=== PATIENT | male | born 1960 | race Caucasian/White ===

== ENCOUNTER 2020-03-29 17:31 | Emergency (ER) | payer BC ==
--- NOTE | 2020-03-29 17:33 | ERPHSYRPT ---
- History of Present Illness Time Seen by Provider: 03/29/20 17:32 Historian: patient Exam Limitations: clinical condition Physician History: This is a 59-year-old white male who has a history of hypertension and presents with sudden onset of right flank pain that radiates down into his right lower quadrant and right groin. It occurred just prior to his arrival. Patient arrives writhing in pain. He feels nauseated but has not had any vomiting or diarrhea. Patient has never had anything like this in the past. Chest pain and he denies shortness of breath. Patient has no known drug allergies. The only medication he is taking is lisinopril Timing/Duration: today, sudden, worse Activities at Onset: none Quality: sharpness, stabbing Abdominal Pain Onset Location: flank (Right) Pain Radiation: RLQ, groin Severity of Pain-Max: moderate Severity of Pain-Current: moderate Modifying Factors: Improves With: nothing Associated Symptoms: denies symptoms Previous symptoms: no prior history Allergies/Adverse Reactions: No Known Drug Allergies Allergy (Verified 03/29/20 17:41) Home Medications: lisinopriL [Zestril] 2.5 mg PO DAILY 03/29/20 [History] Hx Tetanus, Diphtheria Vaccination/Date Given: (unsure) Hx Influenza Vaccination/Date Given: No Hx Pneumococcal Vaccination/Date Given: No Travel Risk - International Travel Have you traveled outside of the country in past 3 weeks: No Have you or anyone close to you been diagnosed with or: No Do your reside in a community with a known COVID-19 case?: Yes If Yes where:: [facility] - Coronavirus Screening Has patient experienced Coronavirus symptoms: No - Review of Systems Constitutional: No Symptoms Eyes: No Symptoms Ears, Nose, & Throat: No Symptoms Respiratory: No Symptoms Cardiac: No Symptoms Genitourinary Symptoms: Flank Pain (Right) Musculoskeletal: No Symptoms Skin: No Symptoms Neurological: No Symptoms Psychological: No Symptoms Endocrine: No Symptoms Hematologic/Lymphatic: No Symptoms Immunological/Allergic: No Symptoms All Other Systems: Reviewed and Negative - Past Medical History Pertinent Past Medical History: Yes Neurological History: No Pertinent History ENT History: No Pertinent History Cardiac History: No Pertinent History Respiratory History: Sleep Apnea Endocrine Medical History: No Pertinent History Musculoskeletal History: No Pertinent History GI Medical History: No Pertinent History History: No Pertinent History Psycho-Social History: No Pertinent History Male Reproductive Disorders: No Pertinent History - Past Surgical History Past Surgical History: Yes Neuro Surgical History: No Pertinent History Cardiac: No Pertinent History Respiratory: No Pertinent History Gastrointestinal: No Pertinent History Genitourinary: No Pertinent History Musculoskeletal: No Pertinent History Male Surgical History: Vasectomy Other Surgical History: t&a - Social History Smoking Status: Never smoker Exposure to second hand smoke: Yes Drug Use: none Patient Lives Alone: No - Nursing Vital Signs Nursing Vital Signs: Initial Vital Signs Temperature 98.1 F 03/29/20 17:36 Pulse Rate 68 03/29/20 17:36 Respiratory Rate 22 03/29/20 17:36 Blood Pressure 157/87 03/29/20 17:36 O2 Sat by Pulse Oximetry 99 03/29/20 17:36 Pain Scale Pain Intensity 10 - Physical Exam General Appearance: moderate distress, alert, anxiety Eye Exam: PERRL/EOMI, eyes nml inspection Ears, Nose, Throat Exam: normal ENT inspection, moist mucous membranes Neck Exam: normal inspection, non-tender, supple, full range of motion Respiratory Exam: normal breath sounds, lungs clear, airway intact, No chest tenderness, No respiratory distress Cardiovascular Exam: regular rate/rhythm, normal heart sounds, normal peripheral pulses Gastrointestinal/Abdomen Exam: soft, normal bowel sounds, No tenderness Rectal Exam: not done Back Exam: normal inspection, normal range of motion, CVA tenderness (Right), No vertebral tenderness Extremity Exam: normal inspection, normal range of motion, pelvis stable Neurologic Exam: alert, oriented x 3, cooperative, chamber magistrate II-XII nml as tested Skin Exam: normal color, warm, dry Lymphatic Exam: No adenopathy SpO2 Interpretation: normal O2 Delivery: Room Air - Course Nursing assessment & vital signs reviewed: Yes Ordered Tests: Active Orders 24 hr Category Date Time Status IV Insertion STAT Care 03/29/20 17:44 Active ABDOMEN AND PELVIS W/0 CONTRAS [CT] Stat Exams 03/29/20 17:45 Taken AMYLASE Stat Lab 03/29/20 17:50 Completed CBC W DIFF Stat Lab 03/29/20 17:50 Completed CMP Stat Lab 03/29/20 17:50 Completed Lactic Acid Stat Lab 03/29/20 17:50 Completed Lactic Acid Stat Lab 03/29/20 20:01 Received UA W/RFX UR CULTURE Stat Lab 03/29/20 20:00 Completed Medication Summary Discontinued Medications Generic Name Dose Route Start Last Admin Trade Name Cuco PRN Reason Stop Dose Admin Hydromorphone HCl 1 mg 03/29/20 17:44 03/29/20 17:58 Hydromorphone 1 Mg/Ml Ampule IV 03/29/20 17:45 1 mg STAT ONE Administration Hydromorphone HCl Confirm 03/29/20 17:52 Hydromorphone 1 Mg/Ml Ampule Administered 03/29/20 17:53 Dose 1 mg .ROUTE .STK-MED ONE Sodium Chloride 1,000 mls @ 999 mls/hr 03/29/20 17:44 03/29/20 17:55 Sodium Chloride 0.9% 1000 Ml IV 03/29/20 18:44 999 mls/hr .Q1H1M STA Administration Sodium Chloride Confirm 03/29/20 17:53 Sodium Chloride 0.9% 1000 Ml Administered 03/29/20 17:54 Dose 1,000 mls @ ud .ROUTE .STK-MED ONE Ketorolac Tromethamine 30 mg 03/29/20 17:44 03/29/20 17:57 Toradol 30 Mg Injection IV 03/29/20 17:45 30 mg STAT ONE Administration Ketorolac Tromethamine Confirm 03/29/20 17:52 Toradol 30 Mg Injection Administered 03/29/20 17:53 Dose 30 mg .ROUTE .STK-MED ONE Ondansetron HCl 4 mg 03/29/20 17:44 03/29/20 17:56 Zofran 4 Mg/2 Ml Vial IV 03/29/20 17:45 4 mg STAT ONE Administration Ondansetron HCl Confirm 03/29/20 17:52 Zofran 4 Mg/2 Ml Vial Administered 03/29/20 17:53 Dose 4 mg .ROUTE .STK-MED ONE Lab/Rad Data: Laboratory Result Diagrams 03/29/20 17:50 03/29/20 17:50 Laboratory Results 03/29/20 03/29/20 03/29/20 Range/Units 20:00 17:50 17:50 WBC (4.0-10.5) K/mm3 RBC (4.1-5.6) M/mm3 Hgb (12.5-18.0) gm/dl Hct (42-50) % MCV (78-100) fl MCH (26-32) pg MCHC (32-36) g/dl RDW (11.5-14.0) % Plt Count (150-450) K/mm3 MPV (7.5-11.0) fl Gran % (36.0-66.0) % Eos # (Auto) (0-0.5) Absolute Lymphs (auto) (1.0-4.6) Absolute Monos (auto) (0.0-1.3) Lymphocytes % (24.0-44.0) % Monocytes % (0.0-12.0) % Eosinophils % (0.00-5.0) % Basophils % (0.0-0.4) % Absolute Granulocytes (1.4-6.9) Basophils # (0-0.4) Sodium 140 (137-145) mmol/L Potassium 3.6 (3.5-5.1) mmol/L Chloride 103 (98-107) mmol/L Carbon Dioxide 27 (22-30) mmol/L Anion Gap 13.4 (5-15) MEQ/L BUN 20 (9-20) mg/dL Creatinine 1.09 (0.66-1.25) mg/dL Estimated GFR > 60.0 ML/MIN Glucose 137 H (74-106) mg/dL Lactic Acid 2.9 H (0.4-2.0) Calcium 8.9 (8.4-10.2) mg/dL Total Bilirubin 0.60 (0.2-1.3) mg/dL AST 25 (17-59) U/L ALT 17 (0-50) U/L Alkaline Phosphatase 48 (38-126) U/L Serum Total Protein 7.7 (6.3-8.2) g/dL Albumin 4.4 (3.5-5.0) g/dL Amylase 99 (30-110) U/L Urine Color STRAW (YELLOW) Urine Appearance CLEAR (CLEAR) Urine pH 7.0 (5-6) Ur Specific [place] 1.013 (1.005-1.025) Urine Protein NEGATIVE (Negative) Urine Ketones TRACE (NEGATIVE) Urine Blood NEGATIVE (0-5) Markel/ul Urine Nitrite NEGATIVE (NEGATIVE) Urine Bilirubin NEGATIVE (NEGATIVE) Urine Urobilinogen NEGATIVE (0-1) mg/dL Ur Leukocyte Esterase NEGATIVE (NEGATIVE) Urine WBC (Auto) NONE (0-5) /HPF Urine RBC (Auto) NONE (0-2) /HPF U Epithel Cells (Auto) NONE (FEW) /HPF Urine Bacteria (Auto) NONE (NEGATIVE) /HPF Urine Mucus (Auto) SLIGHT (NEGATIVE) /HPF Urine Culture Reflexed NO (NO) Urine Glucose NEGATIVE (NEGATIVE) mg/dL 03/29/20 Range/Units 17:50 WBC 13.6 H (4.0-10.5) K/mm3 RBC 4.61 (4.1-5.6) M/mm3 Hgb 14.1 (12.5-18.0) gm/dl Hct 42.4 (42-50) % MCV 92.0 (78-100) fl MCH 30.6 (26-32) pg MCHC 33.3 (32-36) g/dl RDW 13.2 (11.5-14.0) % Plt Count 225 (150-450) K/mm3 MPV 9.8 (7.5-11.0) fl Gran % 80.4 H (36.0-66.0) % Eos # (Auto) 0.10 (0-0.5) Absolute Lymphs (auto) 1.73 (1.0-4.6) Absolute Monos (auto) 0.80 (0.0-1.3) Lymphocytes % 12.7 L (24.0-44.0) % Monocytes % 5.9 (0.0-12.0) % Eosinophils % 0.7 (0.00-5.0) % Basophils % 0.3 (0.0-0.4) % Absolute Granulocytes 10.95 H (1.4-6.9) Basophils # 0.04 (0-0.4) Sodium (137-145) mmol/L Potassium (3.5-5.1) mmol/L Chloride (98-107) mmol/L Carbon Dioxide (22-30) mmol/L Anion Gap (5-15) MEQ/L BUN (9-20) mg/dL Creatinine (0.66-1.25) mg/dL Estimated GFR ML/MIN Glucose (74-106) mg/dL Lactic Acid (0.4-2.0) Calcium (8.4-10.2) mg/dL Total Bilirubin (0.2-1.3) mg/dL AST (17-59) U/L ALT (0-50) U/L Alkaline Phosphatase (38-126) U/L Serum Total Protein (6.3-8.2) g/dL Albumin (3.5-5.0) g/dL Amylase (30-110) U/L Urine Color (YELLOW) Urine Appearance (CLEAR) Urine pH (5-6) Ur Specific [place] (1.005-1.025) Urine Protein (Negative) Urine Ketones (NEGATIVE) Urine Blood (0-5) Markel/ul Urine Nitrite (NEGATIVE) Urine Bilirubin (NEGATIVE) Urine Urobilinogen (0-1) mg/dL Ur Leukocyte Esterase (NEGATIVE) Urine WBC (Auto) (0-5) /HPF Urine RBC (Auto) (0-2) /HPF U Epithel Cells (Auto) (FEW) /HPF Urine Bacteria (Auto) (NEGATIVE) /HPF Urine Mucus (Auto) (NEGATIVE) /HPF Urine Culture Reflexed (NO) Urine Glucose (NEGATIVE) mg/dL - Progress Progress: improved Progress Note: 03/29/20 19:18 CAT scan of the abdomen and pelvis reveals a right 2 to 3 mm urinary bladder stone. There is mild right hydronephrosis with minimal right hydroureter consistent with recent passage of ureteral stone. Patient states that his pain is significantly improved. Counseled pt/family regarding: lab results, diagnosis, need for follow-up, rad results - Departure Departure Disposition: Home Clinical Impression: Urinary bladder calculus Condition: Stable Critical Care Time: No Referrals: DEV IBARRA [Primary Care Provider] - Additional Instructions: Drink plenty of fluids. Use 600 mg of ibuprofen with food 3 times a day for the next 3 to 4 days for pain control.
[2020-03-29] MEDS ORDERED: Zofran 4 MG/2 ML VIAL IV ONE ×2 (17:44→20:36)
[2020-03-29] MEDS ORDERED: Hydromorphone 1 mg/ml Ampule IV ONE (17:44)
[2020-03-29] MEDS ORDERED: Sodium Chloride 0.9% 1000 ML 1,000 ML IV STA (17:44)
[2020-03-29] MEDS ORDERED: TORAdol 30 mg Injection IV ONE (17:44)
[2020-03-29] MEDS ORDERED: Zofran 4 MG/2 ML VIAL ONE ×2 (17:52→20:40)
[2020-03-29] MEDS ORDERED: Hydromorphone 1 mg/ml Ampule ONE (17:52)
[2020-03-29] MEDS ORDERED: TORAdol 30 mg Injection ONE (17:52)
[2020-03-29] MEDS ORDERED: Sodium Chloride 0.9% 1000 ML 1,000 ML ONE (17:53)
[2020-03-29 17:54] LABS: Absolute Neutrophil Ct (ANC) 10.95 (1.4-6.9); BASOPHIL % 0.3 % (0.0-0.4); Basophil (Absolute #) 0.04 (0-0.4); Eosinophil % 0.7 % (0.00-5.0); Hematocrit 42.4 % (42-50); Hemoglobin 14.1 gm/dl (12.5-18.0); Lymphocyte (Absolute #) 1.73 (1.0-4.6); Lymphocytes % 12.7 % (24.0-44.0); Mean Corpuscular Hemoglobin 30.6 pg (26-32); Mean Corpuscular Hgb Concent. 33.3 g/dl (32-36); Mean Platelet Volume 9.8 fl (7.5-11.0); Monocytes % 5.9 % (0.0-12.0); Neutrophil % 80.4 % (36.0-66.0); Platelet Count 225 K/mm3 (150-450); Red Blood Count 4.61 M/mm3 (4.1-5.6); Red Cell Distribution Width 13.2 % (11.5-14.0); White Blood Count 13.6 K/mm3 (4.0-10.5)
[2020-03-29 18:10] LABS: ALBUMIN 4.4 g/dL (3.5-5.0); ALKALINE PHOSPHATASE 48 U/L (38-126); AMYLASE 99 U/L (30-110); ANION GAP 13.4 MEQ/L (5-15); BLOOD UREA NITROGEN 20 mg/dL (9-20); CHLORIDE 103 mmol/L (98-107); Calcium 8.9 mg/dL (8.4-10.2); Carbon Dioxide 27 mmol/L (22-30); Creatinine 1 1.09 mg/dL (0.66-1.25); Glucose 137 mg/dL (74-106); Potassium 3.6 mmol/L (3.5-5.1); SGOT/AST 25 U/L (17-59); SGPT/ALT 17 U/L (0-50); SODIUM 140 mmol/L (137-145); Total Protein 7.7 g/dL (6.3-8.2)
[2020-03-29 20:11] LABS: Appearance CLEAR (CLEAR); Bilirubin NEGATIVE (NEGATIVE); Blood NEGATIVE Ery/ul (0-5); Glucose NEGATIVE (NEGATIVE); Ketones TRACE (NEGATIVE); Leukocyte Esterase NEGATIVE (NEGATIVE); Mucus SLIGHT /HPF (NEGATIVE); Nitrite NEGATIVE (NEGATIVE); Protein,Urine Dip NEGATIVE (Negative); Specific Gravity 1.013 (1.005-1.025); Urobilinogen NEGATIVE mg/dL (0-1)
[2020-03-29] MEDS ORDERED: GI COCKTAIL 45 ML (Maalox/Lidocaine) PO ONE (20:37)
[2020-03-29] MEDS ORDERED: Pepcid 20 MG VIAL IV ONE ×2 (20:37→20:40)
[2020-03-29] MEDS ORDERED: MAALOX ES 30 ML UNIT DOSE ONE (20:41)
[2020-03-29] MEDS ORDERED: XYLOCAINE HCl Viscous ONE (20:41)
[2020-03-29 21:10] VITALS: BP 136/96; PULSE 68; O2SAT 95
--- NOTE | 2020-03-30 08:17 | XRAY ---
Indication: Flank pain. Multiple contiguous axial images obtained through the abdomen and pelvis without contrast using renal stone protocol. Comparison: October 29, 2019. Lung bases demonstrates minimal bibasilar dependent atelectasis. No infiltrate or effusion. Heart is not enlarged. New small hiatal hernia. Urinary bladder demonstrates new 2-3 mm calculus on the right adjacent to the UVJ. Right ureter is also mildly prominent and there is mild right sided hydronephrosis consistent with passage of said calculus. No free fluid/air. Noncontrasted stomach and bowel loops appear nonobstructed. Normal appendix. Stable scattered colonic diverticulosis. Remaining liver, gallbladder, pancreas, spleen, adrenal glands, kidneys, ureters, bladder, and aorta appear unremarkable for noncontrast exam. Osseous structures intact. Impression: 1. New 2-3 mm urinary bladder calculus with mild right sided hydronephrosis and minimal hydroureter from recent passage of calculus. 2. New small hiatal hernia. 3. Stable colonic diverticulosis.
== END 2020-03-29 21:11 | disposition home or self-care (01) ==
LOC: ED 17:31
DX: N21.0 Calculus in bladder (principal); N13.30 Unspecified hydronephrosis; R12 Heartburn; R11.0 Nausea
CPT/HCPCS: 36000; 36415; 74176; 80053; 81001; 82150; 83605; 85025; 96360; 96374; 96375; 96376; 99284; J1170; J1885; J2405; A9270-GY

== ENCOUNTER 2025-01-07 06:25 | Day surgery (SDC) | payer OTHER ==
[2025-01-07 06:39] VITALS: RESP 18
[2025-01-07] MEDS: Lactated Ringers 1,000 ML IV SCH (06:49)
[2025-01-07 07:05] LABS: Absolute Neutrophil Ct (ANC) 2.74 x10^3/uL (1.78-5.38); BASOPHIL % 1.3 % (0.2-1.2); Basophil (Absolute #) 0.06 x10^3/uL (0.01-0.08); Eosinophil % 2.4 % (0.8-7.0); Eosinophil (Absolute #) 0.11 x10^3/uL (0.04-0.54); Hematocrit 41.2 % (40.1-51.0); Hemoglobin 13.9 g/dL (13.7-17.5); IMMATURE GRAN # 0.01 x10^3u/L (0.001-0.031); IMMATURE GRAN % 0.2 % (0.001-0.429); Lymphocyte (Absolute #) 1.32 x10^3/uL (1.32-3.57); Lymphocytes % 28.4 % (21.8-53.1); Mean Cell Volume 89.8 fL (79.0-92.2); Mean Corpuscular Hemoglobin 30.3 pg (25.7-32.2); Mean Corpuscular Hgb Concent. 33.7 g/dL (32.3-36.5); Mean Platelet Volume 8.9 fL (9.4-12.4); Monocytes % 8.6 % (5.3-12.2); Neutrophil % 59.1 % (34.0-67.9); Platelet Count 222 x10^3/uL (163-337); Red Blood Count 4.59 x10^6/uL (4.63-6.08); White Blood Count 4.6 x10^3/uL (4.23-9.07)
[2025-01-07 07:20] LABS: ANION GAP 16.4 MEQ/L (5-15); Calcium 8.9 mg/dL (8.4-10.2); Creatinine 1 0.98 mg/dL (0.66-1.25); EST GLOMERULAR FILTRATION RATE 86.1 ML/MIN; Potassium 3.9 mmol/L (3.5-5.1)
[2025-01-07] MEDS ORDERED: propofoL IV ONE (08:03)
[2025-01-07] MEDS ORDERED: Versed 2 MG/2 ML Injection ONE (08:03)
[2025-01-07 08:56] VITALS: TEMP 97; O2SAT 96
[2025-01-07 09:06] VITALS: BP 118/76; PULSE 51
--- NOTE | 2025-01-10 09:26 | OP ---
SURGERY DATE/TIME: 01/07/2025 [id number] PREOPERATIVE DIAGNOSIS: Screening exam. POSTOPERATIVE DIAGNOSIS: Small sigmoid colon polyp and moderate to severe sigmoid diverticulosis. PROCEDURE: Colonoscopy with cold forceps polypectomy. SURGEON: Arvin Lobo MD ANESTHESIA: Medication given by the Anesthesia department. HISTORY: The patient is a 64-year-old white male patient presenting now for screening colonoscopy. He was appraised of risks of the procedure including risk of perforation, phlebitis, untoward reaction to medication, bleeding and missed lesions. The patient verbalized his understanding and desire to have the procedure performed. DESCRIPTION OF PROCEDURE AND FINDINGS: Patient was given medication by the Anesthesia department. He had continuous pulse oximetry, ECG monitoring, and intermittent blood pressure monitoring during the examination. He was placed in the left lateral decubitus position. Digital rectal examination was performed and revealed normal anal sphincter tone, no masses and a normal prostate. The flexible Olympus colonoscope was used to intubate the rectum. A view of the colon was developed sequentially to the cecum. Upon insertion and withdrawal, was noted a small approximately 0.7 cm size polyp in the sigmoid colon. This was biopsied and destroyed using passes of the cold forceps biopsy instrument. No other mucosa lesions being noted other than moderate to severe sigmoid diverticulosis. The scope was removed. The patient tolerated the procedure well and was sent back to outpatient recovery in good condition. The prep was noted to be fair to good.
== END 2025-01-07 09:17 | disposition home or self-care (01) ==
LOC: SDC 06:25
PROVIDERS: ATTEND Family Medicine
DX: Z12.11 Encounter for screening for malignant neoplasm of colon (principal); K63.5 Polyp of colon; K57.30 Diverticulosis of large intestine without perforation or abscess without bleeding
CPT/HCPCS: 36415; 80048; 85025; 93005; J2250; J2704